=== PATIENT | female | born 1995 | race Caucasian/White ===

== ENCOUNTER 2025-07-24 15:14 | Emergency (ER) | payer MEDICAID, SELFPAY ==
--- NOTE | ~2025-07-24 | XR_ITS ---
EXAMINATION: XR CHEST 2 VIEWS HISTORY: cough, sob COMPARISON: Comparison is made with the prior examination dated 10/21/2014. FINDINGS: PA and lateral views of the chest are submitted. The lungs are expanded and clear. There is no pleural effusion, pneumothorax, or pulmonary vascular congestion. The heart is normal in size. There is a moderate hiatal hernia. The bones are intact. XR/XR chest 2V IMPRESSION: Moderate hiatal hernia. The lungs are clear. Electronically signed by: Easton Gonsalves MD 07/24/2025 03:55 PM EST
[2025-07-24 15:23] VITALS: BP 118/73; PULSE 107; RESP 16; TEMP 36.9; O2SAT 98; BMI 26.9
--- NOTE | 2025-07-24 15:25 | ED_ITS ---
HPI - URI/Sore Throat General Chief Complaint: Upper Respiratory Symptoms Stated Complaint: RO flu / pneumonia Time Seen by Provider: 07/24/25 17:14 Source: patient, RN notes reviewed and old records reviewed Mode of arrival: ambulatory History of Present Illness ED Provider: Jackie Garcia PA-C HPI Narrative: 29-year-old female with past medical history of asthma presenting to the ED complaining of dry cough, SOB, nausea, chest discomfort with coughing x 4-5 days. Admits to sick contact with the flu. Denies difficulty/inability to swallow, travel, abdominal pain Related Data Allergies Allergy/AdvReac Type Severity Reaction Status Date / Time No Known Allergies Allergy Verified 07/24/25 15:27 Review of Systems Review of Systems: Yes all other systems are reviewed and are negative Constitutional: Constitutional: Reports as per [facility] Past Medical History Attestation statement: The following information was validated with the patient. Source: old records reviewed Physical Exam Vital Signs: Vital Signs: Last Vital Signs Temp 98.5 F 07/24/25 15:23 Pulse 107 H 07/24/25 15:23 Resp 16 07/24/25 15:23 BP 118/73 07/24/25 15:23 Pulse Ox 98 07/24/25 15:23 O2 Del Method Room Air 07/24/25 15:23 BMI result Body Mass Index 26.9 Const: General: cooperative, healthy appearing and no acute distress Orientation/consciousness: patient oriented x3 Limitations: no limitations HEENT: Head: Yes normal to inspection and Yes atraumatic Ears: hearing grossly normal bilaterally and external ears normal General nose exam: Normal external nose present Face and sinus: Yes normal facial exam Mouth: Normal oral and palatal mucosa present Throat: Yes posterior oropharynx normal, Yes uvula midline, No uvula laterally displaced and No uvular edema Eyes: General: appearance normal, both eyes and all related structures EOM: EOMs intact bilaterally Neck: Neck: Yes normal visual inspection and Yes no meningeal signs Resp: Effort & Inspection: normal respiratory effort, no respiratory distress and no stridor Auscultation: clear to auscultation bilaterally, no crackles and no wheezes Cardio: Rate: regular rate Heart sounds: S1 normal heart sound present and S2 normal heart sound present Skin: Rashes: no rashes Wounds: no wounds Neuro: General: patient oriented x3, tone normal and no meningeal signs Cranial nerves: Yes CN's II-XII intact bilaterally Gait exam (Neuro): Normal gait present Extrem: General: Yes normal to inspection Course Course Course Narrative: This is a Rapid Medical Exam performed in triage by Jackie Garcia PA-C. Full HPI, ROS and PE to be performed by primary ED provider. 29 yo F w/pmhx asthma presenting to the ED c/o cough, SOB, nausea, chest discomfort when coughing x few days. +sick contact w/flu PE: NAD, nontoxic appearing, lungs CTA, talking in complete sentences Plan: SARs, CXR 5:19 PM 07/24/2025 (Jackie Garcia PA-C): XR chest 2V IMPRESSION: Moderate hiatal hernia. The lungs are clear. -influenza B positive > out of the window for Tamiflu. Is tolerating PO in the ED. Results discussed with patient including worrisome signs and symptoms and strict return precautions, and when to return to the emergency department. They verbalized understanding and feel safe for discharge at this time. Medical Decision Making Medical Decision Making [facility] Narrative: 29-year-old female with past medical history of asthma presenting to the ED complaining of dry cough, SOB, nausea, chest discomfort with coughing x 4-5 days. On exam initially mildly tachycardic, NAD, nontoxic appearing, lungs CTA. Concern for influenza. No evidence of CHICLE GRINDER FEEDER/retropharyngeal abscess. r/o pneumonia Plan: CXR, viral testing Please refer to course for remaining clinical decision making, interpretation of labs/imaging results, and discussions with consultants and/or family members. Differential Diagnosis Differential Diagnoses: The differential diagnosis associated with the presentation includes As above Admission/Observation Consideration of admission/observation: Escalation of care including admission/observation considered Lab Data [facility] Lab Attestation statement: I reviewed the patient's lab results. Labs: Lab Results 07/24/25 Range/Units 15:33 Influenza Type A (PCR) NEGATIVE (Negative) Influenza Type B (PCR) POSITIVE A (Negative) RSV RNA Qual (PCR) NEGATIVE (Negative) SARS-CoV-2 RNA (RT-PCR) NEGATIVE (Negative) S. pyogenes GrpA KAILA Negative (Negative) Independent Interpretation I performed an independent interpretation of an: Plain X-Ray Radiology Impression Discussion of test interpretation with radiology: I have reviewed the radiologist's reading. External Record Review External record reviewed: Inpatient record, Office record, Outpatient record, Prior outpatient labs, Prior outpatient radiology, Primary care record and Outside ED record Tests considered The following testing was considered but not selected: As above Prescription Management I considered prescription management with: Pain Medication, Antiviral and Antibiotic Chronic Conditions Patient?s care impacted by: Other (Asthma) Social Determinants Patient?s care significantly limited by Social Determinants of Health including: Other Social Determinant of Health Discharge Plan Discharge Clinical Impression: Influenza B Patient Disposition: Home, Self-Care Instructions: Influenza (DC) Additional Instructions: You have the flu No antibiotics are indicated at this time Make sure you are staying hydrated. Drink plenty of fluids. Rest Alternate Tylenol and Motrin at home as needed for body aches and fever Follow-up with your doctor. If symptoms persist or worsen return to the emergency department *If you are a child & not tolerating liquid or urinating for more than 6 hours, or fevers are uncontrolled with medications at home, return to the emergency department* Referrals: Reyna Allen MD [Primary Care Provider, Family Practice] - 1 week Stand Alone Forms: Work/School Release Print Language: Australian
[2025-07-24 16:08] LABS: Strep A Nucleic Acid Negative (Negative)
[2025-07-24 16:32] LABS: Resp Syncy Virus RNA Qual PCR NEGATIVE (Negative); SARS COV2 PCR INHOUSE NEGATIVE (Negative)
--- OUTSIDE RECORDS SUMMARY | 2025-07-24 17:22 | XMS_ITS | Encounter Summary ---
Author Organization [facility] Address [address] [place] [address] Phone Care Team Providers Care Work Environment Safety Inspector Name Role Phone Reyna Allen MD Primary Care Provider [phone] Araceli Holm RN Unavailable Ryley Soto Unavailable [phone] Deborah Correa Unavailable Josseline Allan MD Unavailable Reyna Allen MD Unavailable [phone] Reyna Allen MD Primary Care Provider [phone] Encounter Details Date Type Department Care Team (Late st Contact Info) Description 05/21/2020 Procedure Pass [facility] Cardiovascular And Interventional Radiology [address] [place] [address] Social History Tobacco Use Types Packs/Day Years Used Date Smoking Tobacco: Former Smokeless Tobacco: Never Comments:quit 4 years Alcohol Use Standard Drinks/Week Comments Never 0 (1 standard drink = 0.6 oz pur e alcohol) Comments No Sex and Gender Information Value Date Recorded Sex Assigned at Female 10/27/2022 12:30 PM EDT Legal Sex Female 10:05 AM EDT Gender Identity Female 10/27/2022 12:30 PM EDT Sexual Orientation Pansexual 06/01/2024 2: 11 PM EST documented as of this encounter Plan of Treatment Not on file documented as of this encounter Visit Diagnoses Not on filedocumented in this encounter Additional Health Concerns Infection Onset Date Last Indicated Resolved Time CoV-Risk 05/21/2020 05/21/2020 06/04/2020 1:23 AM EST CoV-Risk 12/20/2023 12/20/2023 12/31/2023 1:22 AM EDT documented as of this encounter Care Teams Work Environment Safety Inspector Relationship Specialty Start Date End Date Reyna Allen MD PCP - General Family Medicine 05/21/20 12/19/23 Reyna Allen MD [address] [place] [address] [place] [phone] [email or web address] PCP - General Family Medicine 12/20/23 Araceli Holm RN [address] [place] [phone] PHCM Package Pick Up 06/20/20 11/10/20 Ryley Soto LICSW [address] [place] [phone] [facility] Vice President Client Services 06/20/20 10/24/22 Deborah Correa [address] [place] [phone] [email or web address] Community Health Worker 06/23/20 10/15/20 Josseline Allan MD [address] [place] [phone] Insurance Assigned Provider 11/01/20 12/28/20 Reyna Allen MD [address] [place] [phone] Insurance Assigned Provider 11/06/22 04/02/23 documented as of this encounter Additional Source Comments The information contained in this document represents components of the legal health record. It is not the complete legal health record.[facility]
--- OUTSIDE RECORDS SUMMARY | 2025-07-24 17:22 | XMS_ITS | Encounter Summary ---
Author Organization [facility] Address [address] [place] [address] Phone Care Team Providers Care Letter Carrier Name Role Phone Reyna Allen MD Primary Care Provider [phone] Encounter Details Date Type Department Care Team (Late st Contact Info) Description 07/11/2024 Procedure Pass [facility] Cardiovascular And Interventional Radiology [address] [place] [address] Social History Tobacco Use Types Packs/Day Years Used Date Smoking Tobacco: Former Cigarettes Q uit: 2015 Smokeless Tobacco: Never Comments:quit 4 years Alcohol Use Standard Drinks/Week Comments Never 0 (1 standard drink = 0.6 oz pur e alcohol) Education Answer Date Recorded Are you interested in more education? Not on sofiya e 11/19/2022 Are you concerned about learning? Not on file 11/19/2022 No 11/19/2022 No 11/19/2022 Digital Access Answer Date Recorded No 12/18/2022 No 12/18/2022 Reliable internet access at home? Not on file 12/18/2022 Device with a working camera? Not on file Intimate Partner Violence Answer Date R ecorded Are you denied basic needs s uch as food, clothing, or medical care? No 07/11/2024 In the past 12 months have y ou been in a relationship with a person who hurts, threatens, or tries to control you? No 07/11/2024 Are you denied basic needs s uch as food, clothing, or medical care? No 07/11/2024 In the past 12 months have y ou been in a relationship with a person who hurts, threatens, or tries to control you? No 07/11/2024 Comments No Sex and Gender Information Value Date Recorded Sex Assigned at Female 10/27/2022 12:30 PM EDT Legal Sex Female 10:05 AM EDT Gender Identity Female 10/27/2022 12:30 PM EDT Sexual Orientation Pansexual 06/01/2024 2: 11 PM EST documented as of this encounter Plan of Treatment Not on file documented as of this encounter Visit Diagnoses Not on filedocumented in this encounter Care Teams Letter Carrier Relationship Specialty Start Date End Date Reyna Allen MD [address] [place] [address] [place] [phone] [email or web address] PCP - General Family Medicine 12/20/23 documented as of this encounter Additional Source Comments The information contained in this document represents components of the legal health record. It is not the complete legal health record.[facility]
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
--- OUTSIDE RECORDS SUMMARY | 2025-07-24 17:22 | XMS_ITS | Encounter Summary ---
Author Organization [facility] Address [address] [place] [address] Phone Care Team Providers Care Directory Clerk Name Role Phone Reyna Allen MD Primary Care Provider [phone] Araceli Holm RN Unavailable Ryley Soto Unavailable [phone] Deborah Correa Unavailable [phone] Josseline Allan MD Unavailable Reyna Allen MD Unavailable [phone] Reyna Allen MD Primary Care Provider [phone] Encounter Details Date Type Department Care Team (Late st Contact Info) Description 05/26/2020 Procedure Pass [facility], [address] [address] Social History Tobacco Use Types Packs/Day Years [...] PM EST documented as of this encounter Last Filed Vital Signs Vital Sign Reading Time Taken Comments Blood Pressure - - Pulse - - Temperature - - Respiratory Rate - - Oxygen Saturation - - Inhaled Oxygen Concentration - - Weight 64.4 kg (142 lb) 05/29/2020 10:10 AM EST Height 154.9 cm (5' 1 ) 05/29/2020 10:10 AM EST Body Mass Index 26.83 05/29/2020 10:10 AM EST documented in this encounter Plan of Treatment Not on file documented as of this encounter Visit Diagnoses Not on filedocumented in this encounter Additional Health Concerns Infection Onset Date Last Indicated Resolved Time CoV-Risk 05/21/2020 05/21/2020 06/04/2020 1:23 AM EST CoV-Risk 12/20/2023 12/20/2023 12/31/2023 1:22 AM EDT documented as of this encounter Care Teams Directory Clerk Relationship Specialty Start Date End Date Reyna Allen MD PCP - General Family Medicine 05/21/20 12/19/23 Reyna Allen MD [address] [place] [address] [place] [address] [email or web address] PCP - General Family Medicine 12/20/23 Araceli Holm, DIGNA [address] [place] [phone] PHCM Freight Breaker 06/20/20 11/10/20 Ryley Soto LICSW [address] [place] [address] [email or web address] PHC Steel Burner 06/20/20 10/24/22 Deborah Correa [address] [place] [phone] [email or web address] Community Health Worker 06/23/20 10/15/20 Josseline Allan MD [address] [place] [address] [email or web address] Insurance Assigned Provider 11/01/20 12/28/20 Reyna Allen MD [address] [place] [phone] [email or web address] Insurance Assigned Provider 11/06/22 04/02/23 documented as of this encounter Additional Source Comments The information contained in this document represents components of the legal health record. It is not the complete legal health record.[facility]"
--- OUTSIDE RECORDS SUMMARY | 2025-07-24 17:22 | XMS_ITS | Encounter Summary ---
Author Organization [facility] Address [address] [place] [address] Phone Care Team Providers Care Reservations Specialist Name Role Phone Reyna Allen MD Primary Care Provider [phone] Araceli Holm RN Unavailable Ryley Soto Unavailable [phone] Deborah Correa Unavailable [phone] Josseline Allan MD Unavailable Reyna Allen MD Unavailable [phone] Reyna Allen MD Primary Care Provider [phone] Reason for Visit * Reason Onset Date Comments Post Discharge Follow Up Call 05/22/2020 Encounter Details Date Type Department Care Team (Late st Contact Info) Description 05/22/2020 Telephone [facility] IR Rad [address] [place], [place] [phone] Nba Gagnon MD [email or web address] Discharge Follow Up Call Social History Tobacco Use Types Packs/Day Years [...] documented as of this encounter Care Teams Reservations Specialist Relationship Specialty Start Date End Date Reyna Allen MD PCP - General Family Medicine 05/21/20 12/19/23 Reyna Allen MD [address] [place] [address] [place] [address] [email or web address] PCP - General Family Medicine 12/20/23 Araceli Holm, RN [address] [place] [phone] PHCM Consumer Marketing Manager 06/20/20 11/10/20 Ryley Soto LICSW [address] [place] [address] [email or web address] PHCM Tool Analyst 06/20/20 10/24/22 Deborah Correa [address] [place] [address] [email or web address] Community Health Worker 06/23/20 10/15/20 Josseline Allan MD [address] [place] [phone] Insurance Assigned Provider 11/01/20 12/28/20 Reyna Allen MD [address] [place] [phone] [email or web address] Insurance Assigned Provider 11/06/22 04/02/23 documented as of this encounter Additional Source Comments The information contained in this document represents components of the legal health record. It is not the complete legal health record.[facility]
--- OUTSIDE RECORDS SUMMARY | 2025-07-24 17:22 | XMS_ITS | Encounter Summary ---
Author Organization [facility] Address [address] [place] [address] Phone Care Team Providers Care Assistant Infant Toddler Teacher Name Role Phone Unknown, Unknown Primary Care Provider Reyna Barrientos MD Primary Care Provider [phone] Araceli Holm RN Unavailable Ryley Soto Unavailable [phone] Deborah Correa Unavailable [phone] Josseline Allan MD Unavailable [phone] Reyna Allen MD Unavailable [phone] Reyna Allen MD Primary Care Provider [phone] Reason for Referral * MRI/CAT Scan - Closed Specialty Diagnoses / Procedures Referred By Contac t Referred To Contact Radiology Diagnoses Visual disturbance Procedures MRI Angio Brain Reyna Allen MD Phone: tel: fax: [email or web address] Referral ID Status Reason Start Date Expiration Date Visits Re quested Visits Authorized [id number] Closed 05/07/2020 10/12/2020 1 1 * MRI/CAT Scan - Closed Specialty Diagnoses / Procedures Referred By Contac t Referred To Contact Radiology Diagnoses Visual disturbance Procedures MRI Brain Reyna Allen MD Phone: tel: fax: [email or web address] Referral ID Status Reason Start Date Expiration Date Visits Re quested Visits Authorized [id number] Closed 05/07/2020 11/02/2020 1 1 Encounter Details Date Type Department Care Team (Late st Contact Info) Description 05/07/2020 Ancillary Orders Virtual Department [address] [place] [id number] Reyna Allen MD [address] [place] [address] [email or web address] Visual disturbance Social History Tobacco Use Types Packs/Day Years Used Date Smoking Tobacco: Never Assessed Comments Unknown Sex and Gender Information Value Date Recorded Sex Assigned at Female 10/27/2022 12:30 PM EDT Legal Sex Female 10:05 AM EDT Gender Identity Female 10/27/2022 12:30 PM EDT Sexual Orientation Pansexual 06/01/2024 2: 11 PM EST documented as of this encounter Plan of Treatment Not on file documented as of this encounter Results * MRA HEAD WITHOUT CONTRAST (05/15/2020 11:08 AM EDT) Anatomical Region Laterality Modality Head Magnetic Resonan ce 05/15/2020 11:3 4 AM EDT Impressions 05/15/2020 12:28 PM EDT 1. No acute intracranial abnormality, mass, or hydrocephalus. 2. Nonspecific intraocular protrusion of the optic nerve heads with equivocal flattening of the posterior globes, which can be seen with elevated intracranial intracranial pressure (including with idiopathic intracranial hypertension), in the appropriate clinical setting. 3. No proximal large vessel occlusion, aneurysm, or hemodynamically significant stenosis within the major arteries of the head. CAROTID STENOSIS REFERENCE: -Distal internal carotid artery diameter as the denominator for stenosis measurement: MILD = <50% stenosis. MODERATE = 50-69% stenosis. SEVERE = 70-89% stenosis. HAIRLINE/CRITICAL = 90-99% stenosis. OCCLUDED = 100% stenosis. Narrative 05/15/2020 12:28 PM EDT TECHNIQUE: MRI BRAIN WITHOUT CONTRAST, MRI ANGIO BRAIN WITHOUT CONTRAST HISTORY: As per header. COMPARISON: None available. FINDINGS: BRAIN MRI: There is no evidence of intracranial mass, hemorrhage, or acute infarction. The brain parenchyma demonstrates no significant abnormality. The ventricles, sulci, cisterns are within normal limits in size and configuration. There is no evidence of hydrocephalus, brain parenchymal herniation, or sniffing tissue shifts. There is mild concavity of the pituitary gland. There is intraocular protrusion of the optic nerve heads bilaterally and equivocal slight flattening of the posterior globes. The optic nerve sheath-complexes are suboptimally evaluated secondary to technique. There is a large retention cysts within the right maxillary sinus. There are small retention cysts within the left maxillary sinus. The bones and extracranial soft tissues are otherwise unremarkable. HEAD MRA: Evaluation of fine anatomic detail is partially limited secondary to motion artifact and technique; within these limitations: There is no evidence of aneurysm, arteriovenous malformation, or thrombosis of the imaged intracranial arteries. ANTERIOR CIRCULATION The intracranial internal carotid arteries are widely patent. The anterior and middle cerebral arteries are widely patent. An anterior communicating artery is present. POSTERIOR CIRCULATION The intracranial vertebral arteries and the basilar artery are widely patent. The posterior cerebral arteries are widely patent. Bilateral posterior communicating arteries are present. COLLATERAL CIRCULATION Symmetric collateral circulation. Procedure Note Nabeel Guo MD, PhD - 05/15/2020 TECHNIQUE: MRI BRAIN WITHOUT CONTRAST, MRI ANGIO BRAIN WITHOUT CONTRAST HISTORY: As per header. COMPARISON: None available. FINDINGS: BRAIN MRI: There is no evidence of intracranial mass, hemorrhage, or acuteinfarction. The brain parenchyma demonstrates no significant abnormality. The ventricles, sulci, cisterns are within normal limits in size andconfiguration. There is no evidence of hydrocephalus, brain parenchymalherniation, or sniffing tissue shifts. There is mild concavity of the pituitary gland. There is intraocular protrusion of the optic nerve heads bilaterally andequivocal slight flattening of the posterior globes. The optic nervesheath-complexes are suboptimally evaluated secondary to technique. There is a large retention cysts within the right maxillary sinus. Thereare small retention cysts within the left maxillary sinus. The bones and extracranial soft tissues are otherwise unremarkable. HEAD MRA: Evaluation of fine anatomic detail is partially limited secondary tomotion artifact and technique; within these limitations: There is no evidence of aneurysm, arteriovenous malformation, orthrombosis of the imaged intracranial arteries. ANTERIOR CIRCULATION The intracranial internal carotid arteries are widely patent. The anteriorand middle cerebral arteries are widely patent. An anterior communicatingartery is present. POSTERIOR CIRCULATION The intracranial vertebral arteries and the basilar artery are widelypatent. The posterior cerebral arteries are widely patent. Bilateralposterior communicating arteries are present. COLLATERAL CIRCULATION Symmetric collateral circulation. IMPRESSION: 1. No acute intracranial abnormality, mass, or hydrocephalus. 2. Nonspecific intraocular protrusion of the optic nerve heads withequivocal flattening of the posterior globes, which can be seen withelevated intracranial intracranial pressure (including with idiopathicintracranial hypertension), in the appropriate clinical setting. 3. No proximal large vessel occlusion, aneurysm, or hemodynamicallysignificant stenosis within the major arteries of the head. CAROTID STENOSIS REFERENCE: -Distal internal carotid artery diameter as the denominator for stenosismeasurement: MILD = <50% stenosis. MODERATE = 50-69% stenosis. SEVERE = 70-89% stenosis. HAIRLINE/CRITICAL = 90-99% stenosis. OCCLUDED = 100% stenosis. Reyna Allen MD IMG MR HEAD/NECK Final Res ult * MRI BRAIN WITHOUT CONTRAST (05/15/2020 11:08 AM EDT) Anatomical Region Laterality Modality Head Magnetic Resonan ce 05/15/2020 11:3 4 AM EDT Impressions 05/15/2020 12:28 PM EDT 1. No acute intracranial abnormality, mass, or hydrocephalus. 2. Nonspecific intraocular protrusion of the optic nerve heads with equivocal flattening of the posterior globes, which can be seen with elevated intracranial intracranial pressure (including with idiopathic intracranial hypertension), in the appropriate clinical setting. 3. No proximal large vessel occlusion, aneurysm, or hemodynamically significant stenosis within the major arteries of the head. CAROTID STENOSIS REFERENCE: -Distal internal carotid artery diameter as the denominator for stenosis measurement: MILD = <50% stenosis. MODERATE = 50-69% stenosis. SEVERE = 70-89% stenosis. HAIRLINE/CRITICAL = 90-99% stenosis. OCCLUDED = 100% stenosis. Narrative 05/15/2020 12:28 PM EDT TECHNIQUE: MRI BRAIN WITHOUT CONTRAST, MRI ANGIO BRAIN WITHOUT CONTRAST HISTORY: As per header. COMPARISON: None available. FINDINGS: BRAIN MRI: There is no evidence of intracranial mass, hemorrhage, or acute infarction. The brain parenchyma demonstrates no significant abnormality. The ventricles, sulci, cisterns are within normal limits in size and configuration. There is no evidence of hydrocephalus, brain parenchymal herniation, or sniffing tissue shifts. There is mild concavity of the pituitary gland. There is intraocular protrusion of the optic nerve heads bilaterally and equivocal slight flattening of the posterior globes. The optic nerve sheath-complexes are suboptimally evaluated secondary to technique. There is a large retention cysts within the right maxillary sinus. There are small retention cysts within the left maxillary sinus. The bones and extracranial soft tissues are otherwise unremarkable. HEAD MRA: Evaluation of fine anatomic detail is partially limited secondary to motion artifact and technique; within these limitations: There is no evidence of aneurysm, arteriovenous malformation, or thrombosis of the imaged intracranial arteries. ANTERIOR CIRCULATION The intracranial internal carotid arteries are widely patent. The anterior and middle cerebral arteries are widely patent. An anterior communicating artery is present. POSTERIOR CIRCULATION The intracranial vertebral arteries and the basilar artery are widely patent. The posterior cerebral arteries are widely patent. Bilateral posterior communicating arteries are present. COLLATERAL CIRCULATION Symmetric collateral circulation. Procedure Note Nabeel Guo MD, PhD - 05/15/2020 TECHNIQUE: MRI BRAIN WITHOUT CONTRAST, MRI ANGIO BRAIN WITHOUT CONTRAST HISTORY: As per header. COMPARISON: None available. FINDINGS: BRAIN MRI: There is no evidence of intracranial mass, hemorrhage, or acuteinfarction. The brain parenchyma demonstrates no significant abnormality. The ventricles, sulci, cisterns are within normal limits in size andconfiguration. There is no evidence of hydrocephalus, brain parenchymalherniation, or sniffing tissue shifts. There is mild concavity of the pituitary gland. There is intraocular protrusion of the optic nerve heads bilaterally andequivocal slight flattening of the posterior globes. The optic nervesheath-complexes are suboptimally evaluated secondary to technique. There is a large retention cysts within the right maxillary sinus. Thereare small retention cysts within the left maxillary sinus. The bones and extracranial soft tissues are otherwise unremarkable. HEAD MRA: Evaluation of fine anatomic detail is partially limited secondary tomotion artifact and technique; within these limitations: There is no evidence of aneurysm, arteriovenous malformation, orthrombosis of the imaged intracranial arteries. ANTERIOR CIRCULATION The intracranial internal carotid arteries are widely patent. The anteriorand middle cerebral arteries are widely patent. An anterior communicatingartery is present. POSTERIOR CIRCULATION The intracranial vertebral arteries and the basilar artery are widelypatent. The posterior cerebral arteries are widely patent. Bilateralposterior communicating arteries are present. COLLATERAL CIRCULATION Symmetric collateral circulation. IMPRESSION: 1. No acute intracranial abnormality, mass, or hydrocephalus. 2. Nonspecific intraocular protrusion of the optic nerve heads withequivocal flattening of the posterior globes, which can be seen withelevated intracranial intracranial pressure (including with idiopathicintracranial hypertension), in the appropriate clinical setting. 3. No proximal large vessel occlusion, aneurysm, or hemodynamicallysignificant stenosis within the major arteries of the head. CAROTID STENOSIS REFERENCE: -Distal internal carotid artery diameter as the denominator for stenosismeasurement: MILD = <50% stenosis. MODERATE = 50-69% stenosis. SEVERE = 70-89% stenosis. HAIRLINE/CRITICAL = 90-99% stenosis. OCCLUDED = 100% stenosis. Reyna Allen MD IMG MR HEAD/NECK Final Res ult documented in this encounter Visit Diagnoses Diagnosis Visual disturbance Unspecified visual disturbance Visual disturbance Unspecified visual disturbance Visual disturbance Unspecified visual disturbance documented in this encounter Additional Health Concerns Infection Onset Date Last Indicated Resolved Time CoV-Risk 05/21/2020 05/21/2020 06/04/2020 1:23 AM EST CoV-Risk 12/20/2023 12/20/2023 12/31/2023 1:22 AM EDT documented as of this encounter Care Teams Assistant Infant Toddler Teacher Relationship Specialty Start Date End Date Unknown, Unknown, MD PCP - General 04/18/19 05/20/20 Reyna Allen MD PCP - General Family Medicine 05/21/20 12/19/23 Reyna Allen MD [address] [place] [address] [place] [phone] [email or web address] - General Family Medicine 12/20/23 Araceli Holm, DIGNA [address] [place] [address] [id number] PHC Moisture Meter Reader 06/20/20 11/10/20 Ryley Soto LICSW [address] [place] [address] [id number] PHC Machine Cloth Measurer 06/20/20 10/24/22 Deborah Correa [address] [place] [address] [id number] [email or web address] Community Health Worker 06/23/20 10/15/20 Josseline Allan MD [address] [place] [address] [email or web address] Insurance Assigned Provider 11/01/20 12/28/20 Reyna Allen MD [address] [place] [address] [email or web address] Insurance Assigned Provider 11/06/22 04/02/23 documented as of this encounter Additional Source Comments The information contained in this document represents components of the legal health record. It is not the complete legal health record.[facility]
--- OUTSIDE RECORDS SUMMARY | 2025-07-24 17:22 | XMS_ITS | Encounter Summary ---
Author Organization [facility] Address [address] [place] [address] Phone Care Team Providers Care Carton Filling Machine Operator Name Role Phone Unknown, Unknown Primary Care Provider Reyna Barrientos MD Primary Care Provider [phone] Araceli Holm RN Unavailable Ryley Soto Unavailable [phone] Deborah Correa Unavailable [phone] Josseline Allan MD Unavailable Reyna Allen MD Unavailable [phone] Reyna Allen MD Primary Care Provider [phone] Encounter Details Date Type Department Care Team (Late st Contact Info) Description 05/07/[address] [facility], [address] [address] Social History Tobacco Use Types Packs/Day Years [...] documented as of this encounter Care Teams Carton Filling Machine Operator Relationship Specialty Start Date End Date Unknown, Unknown, PCP - General 04/18/19 05/20/20 Reyna Allen MD PCP - General Family Medicine 05/21/20 12/19/23 Reyna Allen MD [address] [place] [address] [place] [phone] [email or web address] - General Family Medicine 12/20/23 Araceli Holm RN [address] [place] [phone] PHCM Forklift Wheel Loader 06/20/20 11/10/20 Ryley Soto LICSW [address] [place] [address] [email or web address] PHCM Transmitter Tester 06/20/20 10/24/22 Deborah Correa [address] [place] [address] [email or web address] Community Health Worker 06/23/20 10/15/20 Josseline Allan MD [address] [place] [phone] Insurance Assigned Provider 11/01/20 12/28/20 Reyna Allen MD [address] [place] [address] Insurance Assigned Provider 11/06/22 04/02/23 documented as of this encounter Additional Source Comments The information contained in this document represents components of the legal health record. It is not the complete legal health record.[facility]
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
--- OUTSIDE RECORDS SUMMARY | 2025-07-24 17:22 | XMS_ITS | Encounter Summary ---
Author Organization [facility] Address [address] [place] [address] Phone Care Team Providers Care School Admissions Representative Name Role Phone Reyna Allen MD Primary Care Provider [phone] Encounter Details Date Type Department Care Team (Late st Contact Info) Description 06/01/2024 Procedure Pass [facility], [address] [address] Social History Tobacco Use Types Packs/Day Years [...] on filedocumented in this encounter Care Teams School Admissions Representative Relationship Specialty Start Date End Date Reyna Allen MD [address] [place] [phone] PCP - General Family Medicine 12/20/23 documented as of this encounter Additional Source Comments The information contained in this document represents components of the legal health record. It is not the complete legal health record.[facility]
--- OUTSIDE RECORDS SUMMARY | 2025-07-24 17:22 | XMS_ITS | Encounter Summary ---
Author Organization [facility] Address [address] [facility] [address] [place] [address] Phone Care Team Providers Care Light Rail Operator Name Role Phone Unknown, Unknown Primary Care Provider Reyna Barrientos MD Primary Care Provider [phone] Araceli oHlm RN Unavailable Ryley Soto Unavailable [phone] Deborah Correa Unavailable Josseline Allan MD Unavailable [phone] Reyna Allen MD Unavailable [phone] Reyna Allen MD Primary Care Provider [phone] Encounter Details Date Type Department Care Team (Late st Contact Info) Description 05/07/2020 Procedure Pass [facility], [address] [address] Social History Tobacco Use Types Packs/Day Years [...] - Inhaled Oxygen Concentration - - Weight 69.4 kg (153 lb) 05/09/2020 3:54 PM EDT Height 152.4 cm (5') 05/09/2020 3:54 PM EDT Body Mass Index 29.88 05/09/2020 3:54 PM EDT documented in this encounter Plan of Treatment Not on file documented as of this encounter Visit Diagnoses Not on filedocumented in this encounter Additional Health Concerns Infection Onset Date Last Indicated Resolved Time CoV-Risk 05/21/2020 05/21/2020 06/04/2020 1:23 AM EST CoV-Risk 12/20/2023 12/20/2023 12/31/2023 1:22 AM EDT documented as of this encounter Care Teams Light Rail Operator Relationship Specialty Start Date End Date Unknown, Unknown, MD PCP - General 04/18/19 05/20/20 Reyna Allen MD [email or web address] PCP - General Family Medicine 05/21/20 12/19/23 Reyna Allen MD [address] [place] [address] [place] [address] [email or web address] PCP - General Family Medicine 12/20/23 Araceli Holm, DIGNA [address] [place] [address] [email or web address] PHCM Corner Cutter Machine Operator 06/20/20 11/10/20 Ryley Soto LICSW [address] [place] [phone] [email or web address] PHC Syrup Mixer Assistant 06/20/20 10/24/22 Deborah Correa [address] [place] [address] [email or web address] Health Worker 06/23/20 10/15/20 Josseline Allan MD [address] [place] [address] [email or web address] Insurance Assigned Provider 11/01/20 12/28/20 Reyna Allen MD [address] [place] [address] [email or web address] Insurance Assigned Provider 11/06/22 04/02/23 documented as of this encounter Additional Source Comments The information contained in this document represents components of the legal health record. It is not the complete legal health record.[facility]
--- OUTSIDE RECORDS SUMMARY | 2025-07-24 17:22 | XMS_ITS | Encounter Summary ---
Author Organization [facility] Address [address] [facility] [address] [place] [address] Phone Care Team Providers Care Programmer Business Name Role Phone Reyna Allen MD Primary Care Provider [phone] Araceli Holm RN Unavailable Ryley Soto Unavailable [phone] Deborah Correa Unavailable Josseline Allan MD Unavailable Reyna Allen MD Unavailable [phone] Reyna Allen MD Primary Care Provider [phone] Encounter Details Date Type Department Care Team (Late st Contact Info) Description 07/07/2020 Procedure Pass [facility] Admitting Dept Virtual Department [address] [place], [place] [id number] Social History Tobacco Use Types Packs/Day Years [...] Onset Date Last Indicated Resolved Time CoV-Risk 12/20/2023 12/20/2023 12/31/2023 1:22 AM EDT documented as of this encounter Care Teams Programmer Business Relationship Specialty Start Date End Date Reyna Allen MD PCP - General Family Medicine 05/21/20 12/19/23 Reyna Allen MD [address] [place] [address] [place] [phone] [email or web address] PCP - General Family Medicine 12/20/23 Araceli Holm RN [address] [place] [phone] PHCM Cadd Manager 06/20/20 11/10/20 Ryley Soto LICSW [address] [place] [phone] [email or web address] PHC Cop Examiner 06/20/20 10/24/22 Deborah Correa [address] [place] [phone] [email or web address] Community Health Worker 06/23/20 10/15/20 Josseline Allan MD [address] [place] [phone] Insurance Assigned Provider 11/01/20 12/28/20 Reyna Allen MD [address] [place] [phone] Insurance Assigned Provider 11/06/22 04/02/23 documented as of this encounter Additional Source Comments The information contained in this document represents components of the legal health record. It is not the complete legal health record.[facility]
--- OUTSIDE RECORDS SUMMARY | 2025-07-24 17:22 | XMS_ITS | Encounter Summary ---
Author Organization [facility] Address [address] [place] [address] Phone Care Team Providers Care Picker Name Role Phone Reyna Allen MD Primary Care Provider [phone] Encounter Details Date Type Department Care Team (Late st Contact Info) Description 06/11/2024 Procedure Pass [facility], [address] [address] Social History Tobacco Use Types Packs/Day Years [...] on filedocumented in this encounter Care Teams Picker Relationship Specialty Start Date End Date Reyna Allen MD [address] [place] [phone] [email or web address] PCP - General Family Medicine 12/20/23 documented as of this encounter Additional Source Comments The information contained in this document represents components of the legal health record. It is not the complete legal health record.[facility]
--- OUTSIDE RECORDS SUMMARY | 2025-07-24 17:22 | XMS_ITS | Encounter Summary ---
Author Organization [facility] Address [address] [facility] [address] [place] [address] Phone Care Team Providers Care Hub Inventory Specialist Name Role Phone Unknown, Unknown Primary Care Provider Reyna Barrientos MD Primary Care Provider [phone] Araceli Holm RN Unavailable Ryley Soto Unavailable [phone] Deborah Correa Unavailable Josseline Allan MD Unavailable Reyna Allen MD Unavailable Reyna Allen MD Primary Care Provider [phone] Encounter Details Date Type Department Care Team (Late st Contact Info) Description 05/19/2020 Procedure Pass [facility] [address] [place] [address] Social History Tobacco Use Types Packs/Day Years [...] documented as of this encounter Care Teams Hub Inventory Specialist Relationship Specialty Start Date End Date Unknown, Unknown, MD PCP - General 04/18/19 05/20/20 Reyna Allen MD PCP - General Family Medicine 05/21/20 12/19/23 Reyna Allen MD [address] [place] [address] [place] [address] [email or web address] PCP - General Family Medicine 12/20/23 Araceli Holm, DIGNA [address] [place] [address] PHCM Steam Power Plant Operator 06/20/20 11/10/20 Ryley Soto LICSW [address] [place] [address] [email or web address] PHCM Training And Development Officer 06/20/20 10/24/22 Deborah Correa [address] [place] [address] [email or web address] Community Health Worker 06/23/20 10/15/20 Josseline Allan MD [address] [place] [address] [email or web address] Insurance Assigned Provider 11/01/20 12/28/20 Reyna Allen MD [address] [place] [address] [email or web address] Insurance Assigned Provider 11/06/22 04/02/23 documented as of this encounter Additional Source Comments The information contained in this document represents components of the legal health record. It is not the complete legal health record.[facility]
--- OUTSIDE RECORDS SUMMARY | 2025-07-24 17:22 | XMS_ITS | Encounter Summary ---
Author Organization [facility] Address [address] [facility] [address] [place] [address] Phone Care Team Providers Care Epic Prelude Analyst Name Role Phone Reyna Allen MD Primary Care Provider [phone] Reyna Allen MD Unavailable Reyna Allen MD Primary Care Provider [phone]- [phone] Encounter Details Date Type Department Care Team (Late st Contact Info) Description 10/27/2022 Procedure Pass [facility], [facility] [address] [place] [address] Social History Tobacco Use Types Packs/Day Years [...] documented as of this encounter Care Teams Epic Prelude Analyst Relationship Specialty Start Date End Date Reyna Allen MD [email or web address] PCP - General Family Medicine 05/21/20 12/19/23 Reyna Allen MD [address] [place] [address] [place] [address] [email or web address] PCP - General Family Medicine 12/20/23 Reyna Allen MD [address] [place] [address] [email or web address] Insurance Assigned Provider 11/06/22 04/02/23 documented as of this encounter Additional Source Comments The information contained in this document represents components of the legal health record. It is not the complete legal health record.[facility]
[2025-07-24 17:33] VITALS: BP 113/77; PULSE 108; RESP 16; TEMP 36.6; O2SAT 99
== END 2025-07-24 17:36 | disposition home or self-care (01) ==
PROVIDERS: Physician Assistant; Emergency Provider Student in an Organized Health Care Education/Training Program; PCP Family Medicine
DX: J10.1 Influenza due to other identified influenza virus with other respiratory manifestations (principal); J45.909 Unspecified asthma, uncomplicated; Z03.818 Encounter for observation for suspected exposure to other biological agents ruled out
CPT/HCPCS: 71046; 87637; 87651; 99283

== ENCOUNTER → 2025-07-24 15:29 | Outpatient (BNV) | payer MEDICAID, SELFPAY | PROVIDERS: PCP Family Medicine; Visit Provider Radiology Diagnostic Radiology | DX: R05.9 Cough, unspecified (principal); R06.02 Shortness of breath | CPT/HCPCS: 71046 ==